=== PATIENT | female | born 1980 | race Asian ===

== ENCOUNTER 2016-08-31 10:23 | Inpatient (IN) | payer SELFPAY ==
[~2016-08-31] VITALS: Ht 160 cm; Wt 73.9 kg
[2016-08-31] MEDS ORDERED: LR 1,000 ML IV ONE (10:45)
[2016-08-31] MEDS ORDERED: CLINDAMYCIN 600 mg/50mL D5W 50 ML IV ONE (11:00)
[2016-08-31 11:15] LABS: BASOPHILS % (AUTO) 0.4 % (0.0-2.0); EOSINOPHILS % (AUTO) 0.4 % (0.0-4.0); HEMATOCRIT 34.2 % (36-48); HEMOGLOBIN 11.9 g/dL (12.0-16.0); LYMPHOCYTES # (AUTO) 1.6 K/uL (1.0-5.5); LYMPHOCYTES % (AUTO) 21.5 % (20.5-51.5); MEAN CORPUSCULAR HEMOGLOBIN 32 pg (27-31); MEAN CORPUSCULAR HGB CONC 35 % (32-36); MEAN CORPUSCULAR VOLUME 92 fL (79.0-98.0); MONOCYTES # (AUTO) 0.4 K/uL (0.0-1.0); MONOCYTES % (AUTO) 6.1 % (1.7-9.3); NEUTROPHILS # (AUTO) 5.3 K/uL (1.8-7.7); NEUTROPHILS % (AUTO) 71.6 % (40.0-70.0); PLATELET COUNT (AUTO) 282 K/uL (130-430); RED BLOOD CELL COUNT(AUTO) 3.71 MIL/uL (4.2-6.2); RED CELL DISTRIBUTION WIDTH 13.5 % (9.0-15.0); WHITE BLOOD COUNT (AUTO) 7.3 K/uL (4.8-10.8)
[2016-08-31] MEDS ORDERED: CEFAZOLIN 2 GM IVPB PREMIX 50 ML IV ONE (12:30)
[2016-08-31] MEDS ORDERED: OXYTOCIN 10 UNIT/ML VIAL IV ONE (13:51)
[2016-08-31] MEDS ORDERED: LR 1,000 ML IV.SOLN IV ONE (13:51)
[2016-08-31] MEDS ORDERED: NS IRRIG SOLN 1000 ML IR ONE (13:51)
[2016-08-31] MEDS ORDERED: MORPHINE SULFATE 10MG/10ML PF AMP EP ONE (13:51)
[2016-08-31] MEDS ORDERED: MIDAZOLAM HCL 5 MG/5 ML VIAL IVP ONE (13:51)
[2016-08-31] MEDS ORDERED: BUPIVACAINE /PF 0.75% 10 ML VIAL INJ ONE (13:51)
[2016-08-31] MEDS ORDERED: OXYTOCIN/NORMAL SALINE 1,000 ML IV ONE (13:57)
[2016-08-31] MEDS ORDERED: LANOLIN 7 GM OINT. TP PRN (14:00)
[2016-08-31] MEDS ORDERED: HYDROcodone/ACETAMIN 5-325 MG TAB (NORCO/ VICODIN) PO PRN (14:00)
[2016-08-31] MEDS ORDERED: OXYCODONE/ACETAMINOPHEN 5-325 TABLET PO PRN (14:00)
[2016-08-31] MEDS ORDERED: MEASLES,MUMPS&RUBELLA VACC/PF 12500 UNIT/0.5 ML VIAL SUBQ PRN (14:00)
[2016-08-31] MEDS ORDERED: ANUSOL 1 EA SUPP.RECT (PREPARATION H) RC PRN (14:00)
[2016-08-31] MEDS ORDERED: NALOXONE HCL 0.4 MG/ML AMP (NARCAN) IVP PRN (14:15)
[2016-08-31] MEDS ORDERED: ONDANSETRON HCL 4 MG/2 ML VIAL IVP PRN ×2 (14:15)
[2016-08-31] MEDS ORDERED: HYDROmorphone 1 MG INJ. 1 MG/ML AMPUL IVP PRN ×2 (14:15)
[2016-08-31] MEDS ORDERED: NALBUPHINE HCL 10 MG/ML AMP IVP PRN (14:15)
[2016-08-31] MEDS ORDERED: HYDROmorphone 2 MG/ML VIAL IVP PRN ×2 (14:15)
[2016-08-31] MEDS ORDERED: LR 1,000 ML IV SCH (14:15)
[2016-08-31] MEDS ORDERED: DIPHENHYDRAMINE INJ 50 MG/ML VIAL IVP PRN (14:15)
[2016-08-31] MEDS ORDERED: MEPERIDINE HCL/PF 25 MG/ML DISP.SYRIN IVP PRN ×2 (14:15)
[2016-08-31] MEDS ORDERED: MORPHINE SULFATE 10MG/10ML PF AMP SP SCH (14:15)
[2016-08-31] MEDS ORDERED: ePHEDrine sulfate 50 MG/ML VIAL IVP PRN (14:15)
[2016-08-31] MEDS: CEFAZOLIN 1 GM IVPB PREMIX 50 ML IV SCH ×2 (18:10→23:53)
[2016-08-31 19:46] VITALS: BP 114/68; RESP 18; TEMP 98.1
[2016-08-31] MEDS ORDERED: TEMAZEPAM 15 MG CAPSULE PO PRN (21:00)
[2016-09-01] MEDS: CEFAZOLIN 1 GM IVPB PREMIX 50 ML IV SCH (05:45)
[2016-09-01 07:31] LABS: BASOPHILS # (AUTO) 0.1 K/uL (0.0-0.2); BASOPHILS % (AUTO) 0.8 % (0.0-2.0); EOSINOPHILS % (AUTO) 0.1 % (0.0-4.0); HEMATOCRIT 33.3 % (36-48); HEMOGLOBIN 11.5 g/dL (12.0-16.0); LYMPHOCYTES # (AUTO) 1.4 K/uL (1.0-5.5); LYMPHOCYTES % (AUTO) 12.3 % (20.5-51.5); MEAN CORPUSCULAR HEMOGLOBIN 32 pg (27-31); MEAN CORPUSCULAR HGB CONC 35 % (32-36); MEAN CORPUSCULAR VOLUME 93 fL (79.0-98.0); MONOCYTES # (AUTO) 0.4 K/uL (0.0-1.0); MONOCYTES % (AUTO) 3.7 % (1.7-9.3); NEUTROPHILS # (AUTO) 9.8 K/uL (1.8-7.7); NEUTROPHILS % (AUTO) 83.1 % (40.0-70.0); PLATELET COUNT (AUTO) 264 K/uL (130-430); RED CELL DISTRIBUTION WIDTH 13.6 % (9.0-15.0); WHITE BLOOD COUNT (AUTO) 11.7 K/uL (4.8-10.8)
[2016-09-01] MEDS: OXYCODONE/ACETAMINOPHEN 5-325 TABLET PO PRN (09:59)
[2016-09-01] MEDS: DOCUSATE SODIUM 100 MG CAPSULE PO PRN ×2 (11:15→23:44)
[2016-09-01] MEDS: SIMETHICONE 80 MG TAB.CHEW PO PRN ×3 (11:15→23:44)
[2016-09-01] MEDS: IBUPROFEN 600 MG TABLET PO SCH ×3 (12:11→23:44)
[2016-09-02] MEDS: DOCUSATE SODIUM 100 MG CAPSULE PO PRN (09:07)
[2016-09-02] MEDS: OXYCODONE/ACETAMINOPHEN 5-325 TABLET PO PRN ×2 (09:07→10:37)
[2016-09-02] MEDS: SIMETHICONE 80 MG TAB.CHEW PO PRN (09:08)
[2016-09-02] MEDS: IBUPROFEN 600 MG TABLET PO SCH ×2 (12:11→12:14)
== END 2016-09-02 13:30 | disposition home or self-care (01) | DRG 766 ==
LOC: SPU 10:23
PROVIDERS: ADMIT Obstetrics & Gynecology; ATTEND Obstetrics & Gynecology
PROC: 10D00Z1 Extraction of Products of Conception, Low, Open Approach (ICD-10-PCS; principal; 2016-09-01)
DX: O34.219 Maternal care for unspecified type scar from previous cesarean delivery (principal); Z37.0 Single live birth; Z3A.39 39 weeks gestation of pregnancy
CPT/HCPCS: 36415; 85025; 86592; 86886; 86900; 86901; 94760; J0690; J2250; J2274; J2590; J3490; J7120